=== PATIENT | male | born 1935 | race Two or more races ===

== ENCOUNTER 2017-07-14 19:02 | Inpatient (IN) | payer OTHER ==
[~2017-07-14] VITALS: Ht 167.6 cm; Wt 90.7 kg
[~2017-07-14 19:02] MED LIST: ACETAMINOPHEN650 M2 ORAL; AMBIEN5 MG ORAL; AMLODIPINE BESY10 MG ORAL; ASPIRIN81 MG ORAL; AVODART0.5 MG ORAL; BENADRYL25 MG ORAL; BENAZEPRIL HCL5 MG ORAL; BISACODYL10 M1 RC; CALCIUM 500 MG1 EACH PO; CLONIDINE 0.2M0.2 MG ORAL; CRANBERRY400 MG PO; DOCUSATE SODIU100 MG ORAL; FAMOTIDINE20 MG ORAL; FLONASE ALLERG9.9 ML NS; HYDRALAZINE HCL50 MG ORAL; HYTRIN10 MG PO; LABETALOL HCL200 MG ORAL; LOSARTAN POTAS100 MG ORAL; MAGNESIUM OXID400 M1 ORAL; METFORMIN HCL500 M1 ORAL; METOPROLOL TART50 M1 ORAL; MULTI VITAMIN1 EACH PO; NEXIUM40 MG GT; NITROGLYCERIN0.4 MG SL; NORCO 5-325 TA1 EAC1 ORAL; ONDANSETRON HCL4 M1 GT; PRAVACHOL80 MG PO; PRAVASTATIN SOD80 M1 ORAL; PROMOD946 ML PO; TYLENOL325 MG ORAL; VESICARE10 MG ORAL; VICODIN 5-3001 EACH PO
[2017-07-14] MEDS ORDERED: HYDRALAZINE HCL25 M1 ORAL (19:20)
[2017-07-14] MEDS ORDERED: LOPERAMIDE2 MG PO (19:20)
[2017-07-14] MEDS ORDERED: BISACODYL5 MG ORAL (19:20)
[2017-07-14] MEDS ORDERED: DOCUSATE SODIU100 MG ORAL (19:20)
[2017-07-14] MEDS ORDERED: HUMALOG100 UNIT/4 SUBQ (19:20)
[2017-07-14] MEDS ORDERED: FLEET ENEMA133 ML RECTAL (19:20)
[2017-07-14] MEDS ORDERED: DUONEB 0.5-3(2.53 ML HHN (19:20)
[2017-07-14] MEDS ORDERED: HYDROCHLOROTH12.5 M2 ORAL (19:20)
[2017-07-14] MEDS ORDERED: Oseltamivir 75mg cap ORAL SCH (19:30)
[2017-07-14] MEDS ORDERED: MILK OF MA400 MG/51 ORAL (19:31)
[2017-07-14] MEDS ORDERED: NAMENDA10 MG ORAL (19:31)
[2017-07-14] MEDS ORDERED: ZOFRAN4 M3 ORAL (19:31)
[2017-07-14] MEDS ORDERED: MILK OF MA2400 MG/10 ORAL (19:31)
[2017-07-14] MEDS ORDERED: MINOXIDIL10 MG PO (19:31)
[2017-07-14 19:59] LABS: HEMATOCRIT 40.3 % (42.0-52.0); MEAN CORPUSCULAR VOLUME 99 FL (80-99); PLATELET COUNT 173 K/UL (150-450); RED CELL DISTRIBUTION WIDTH 10.9 % (11.6-14.8); WHITE BLOOD COUNT 11.7 K/UL (4.8-10.8)
[2017-07-14 20:08] VITALS: BP 131/66
[2017-07-14 20:08] LABS: BASOPHILS % (AUTO) 0.4 % (0.0-2.0); EOSINOPHILS % (AUTO) 0.4 % (0.0-3.0); LYMPHOCYTES % (AUTO) 4.9 % (20.0-45.0); MONOCYTES % (AUTO) 7.2 % (1.0-10.0)
[2017-07-14 20:15] LABS: ANION GAP 8 mmol/L (5-15); BLOOD UREA NITROGEN 22 mg/dL (7-18); CALCIUM 7.7 MG/DL (8.5-10.1); CARBON DIOXIDE 29 MMOL/L (21-32); CHLORIDE 101 MMOL/L (98-107); CREATININE 1.2 MG/DL (0.55-1.30); POTASSIUM 3.5 MMOL/L (3.5-5.1); SODIUM 138 MMOL/L (136-145)
[2017-07-14 20:28] LABS: ALANINE AMINOTRANSFERASE 12 U/L (12-78); ALKALINE PHOSPHATASE 89 U/L (46-116); ASPARTATE AMINO TRANSFERASE 16 U/L (15-37); BILIRUBIN,TOTAL 0.6 MG/DL (0.2-1.0); CKMB 1.6 NG/ML (0.0-3.6); CREATINE KINASE 96 U/L (26-308)
[2017-07-14 20:42] LABS: APPEARANCE,URINE CLEAR; BILIRUBIN, URINE NEGATIVE (NEGATIVE); GLUCOSE, URINE (UA) NEGATIVE (NEGATIVE); KETONES,URINE NEGATIVE (NEGATIVE); LEUKOCYTE ESTERASE ,URINE NEGATIVE (NEGATIVE); NITRITE,URINE NEGATIVE (NEGATIVE); PH,URINE 5 (4.5-8.0); PROTEIN,URINE 1+ (NEGATIVE); UROBILINOGEN,URINE NORMAL MG/DL (0.0-1.0)
[2017-07-14 20:47] LABS: COLOR,URINE YELLOW
[2017-07-14] MEDS ORDERED: Albuterol ud Inhalation HHN ONE (21:00)
--- NOTE | 2017-07-14 21:10 | Emergency Room Report ---
History of Present Illness General Chief Complaint: Fever Source: Medical Record Present Illness HPI 82-year-old male brought in from [facility] for fever and "congestion". Patient not providing history of present illness currently, questionable dementia? Review of paperwork shows history of COPD Allergies: Coded Allergies: No Known Allergies (Unverified , 10/28/12) Patient History Past Medical History: HTN, COPD Past Surgical History: unable to obtain Pertinent Family History: unable to obtain Social History: Denies: smoking, alcohol use, drug use Immunizations: UTD Reviewed Nursing Documentation: PMH: Agreed, PSxH: Agreed Nursing Documentation-PMH Past Medical History: No History, Except For Hx Cardiac Problems: Yes - A.Fib, Hx Hypertension: Yes Hx Pacemaker: No - SEPSIS Hx Asthma: Yes Hx COPD: Yes Hx Diabetes: Yes - dm2 Hx Cancer: Yes - BASAL CELL CARCENOMA Hx Gastrointestinal Problems: Yes - GERD, G-TUBE Hx Neurological Problems: Yes - Dementia, anxiety Hx Cerebrovascular Accident: Yes Hx Tremors: Yes Hx Vertigo: Yes Hx Dizziness: Yes Hx Syncope: Yes Hx Headaches: Yes Hx Weakness: Yes Hx Fatigue: Yes Physical Exam Vital Signs Date Time Temp Pulse Resp B/P (MAP) Pulse Ox O2 Delivery O2 Flow Rate FiO2 07/14/17 19:05 100.6 104 22 136/72 92 Nasal Cannula 2.0 Sp02 EP Interpretation: reviewed, normal General Appearance: normal inspection, well appearing, no apparent distress, alert, non-toxic Head: normocephalic, atraumatic Eyes: bilateral eye PERRL, bilateral eye EOMI ENT: normal ENT inspection, hearing grossly normal, normal pharynx, no angioedema, normal voice, TMs + canals normal, uvula midline, moist mucus membranes Neck: normal inspection, full range of motion, supple, thyroid normal, no meningismus, no bony tend Respiratory: normal inspection, lungs clear, normal breath sounds, no rhonchi, no respiratory distress, no retraction, no accessory muscle use, no wheezing, speaking full sentences Cardiovascular #1: regular rate, rhythm, no edema, no JVD, normal capillary refill Gastrointestinal: normal inspection, normal bowel sounds, non tender, soft, no mass, no peritonitis, non-distended, no guarding, no hernia, no pulsatile mass Genitourinary: no CVA tenderness Musculoskeletal: normal inspection, back normal, normal range of motion, no calf tenderness, pelvis stable, Ellie's Sign negative Neurologic: normal inspection, alert, responsive, transfer knitter III-XII nml as tested, motor strength/tone normal, cerebellar normal, normal gait, speech normal Psychiatric: normal inspection, judgement/insight normal, mood/affect normal, no suicidal/homicidal ideation, no delusions Skin: normal inspection, normal color, no rash Lymphatic: normal inspection, no adenopathy Medical Decision Making Diagnostic Impression: Primary Impression: Fever Qualified Codes: R50.9 - Fever, unspecified ER Course Patient brought in with fever Chest x-ray unchanged from previous from 2016: No obvious pneumonia Cultures pending Was given empiric antibiotics and Tamiflu Influenza swab pending vital signs remained stable, patient not septic or ill-appearing Lab significant only for mild leukocytosis Endorsed to Dr Sandra covering for Dr Rehman, patient of Dr Baeza, PMD Tele admission EKG Diagnostic Results Rate: normal Rhythm: NSR ST Segments: no acute changes Other Impression 1st degree AV block Rhythm Strip Diag. Results EP Interpretation: yes Rate: 86 Rhythm: NSR, no PVC's, no ectopy Chest X-Ray Diagnostic Results Chest X-Ray Diagnostic Results : Chest X-Ray Ordered: Yes # of Views/Limited/Complete: 1 View Indication: Other - fever EP Interpretation: Yes Interpretation: no consolidation, no effusion, no pneumothorax, no acute cardiopulmonary disease Impression: No acute disease Electronically Signed by: Dr Virginia Mosqueda MD Last Vital Signs Date Time Temp Pulse Resp B/P (MAP) Pulse Ox O2 Delivery O2 Flow Rate FiO2 07/14/17 20:08 101.5 91 17 131/66 93 Nasal Cannula 2.0 Status: improved Disposition: ADMITTED INPATIENT Condition: Serious Referrals: ASHLEE BAEZA (PCP) VIRGINIA MOSQUEDA M.D. Jul 14, 2017 21:10
[2017-07-14] MEDS ORDERED: Nitroglycerin Subl 0.4mg tab SL SCH (21:45)
[2017-07-14] MEDS ORDERED: Zolpidem 5mg tab ORAL PRN (21:45)
[2017-07-14] MEDS ORDERED: Albuterol/Ipratropium 3ml neb HHN PRN (21:45)
[2017-07-14] MEDS ORDERED: Norco 5mg/325mg tab ORAL PRN (21:45)
[2017-07-14] MEDS ORDERED: Milk of Magnesia 30ml Ud ORAL PRN (21:45)
[2017-07-14 23:29] VITALS: BP 112/46
[2017-07-15] VITALS (11 sets, daily range): BP systolic 101–168; BP diastolic 45–67
[2017-07-15 06:36] LABS: BASOPHILS % (AUTO) 0.7 % (0.0-2.0); EOSINOPHILS % (AUTO) 1.3 % (0.0-3.0); LYMPHOCYTES % (AUTO) 15.2 % (20.0-45.0); MEAN CORPUSCULAR VOLUME 97 FL (80-99); NEUTROPHILS % (AUTO) 69.8 % (45.0-75.0); PLATELET COUNT 164 K/UL (150-450); RED BLOOD COUNT 3.81 M/UL (4.70-6.10); RED CELL DISTRIBUTION WIDTH 10.6 % (11.6-14.8); WHITE BLOOD COUNT 8.2 K/UL (4.8-10.8)
[2017-07-15 06:49] LABS: ANION GAP 7 mmol/L (5-15); BLOOD UREA NITROGEN 16 mg/dL (7-18); CALCIUM 7.3 MG/DL (8.5-10.1); CARBON DIOXIDE 30 MMOL/L (21-32); CHLORIDE 102 MMOL/L (98-107); CREATININE 0.9 MG/DL (0.55-1.30); POTASSIUM 3.4 MMOL/L (3.5-5.1); SODIUM 139 MMOL/L (136-145)
[2017-07-15 06:53] LABS: ALANINE AMINOTRANSFERASE 9 U/L (12-78); ALBUMIN 3.3 G/DL (3.4-5.0); ALBUMIN/GLOBULIN RATIO 0.9 (1.0-2.7); ALKALINE PHOSPHATASE 72 U/L (46-116); ASPARTATE AMINO TRANSFERASE 23 U/L (15-37); BILIRUBIN,TOTAL 0.8 MG/DL (0.2-1.0)
[2017-07-15] MEDS: cefTRIAXone 1 GM in D5W 55 ML IVPB SCH (08:20)
--- NOTE | 2017-07-15 08:26 | History & Physical ---
History and Physical History & Physicial 82 yo male history of cva and copd admitted with fevers and sepsis. unclear source. cxr and urine negative. all cultures pending pt confused and cannot provide any history. no reports or cough or diarrhea. PMH: cva copd PSH: none known All: nkda Fhx: none known Shx: none ROS: +fever no headaches no cough no cp/sob no diarrhea no rash no new weakness PE: 101 110/70 90 20 awake but nonverbal supple [id number] clear ant soft, nt/nd, + bs no c/c/e labs reviewed A/ sepsis ?pna cva copd P/ abx id eval follow up cultures repeat cxr ivf SHANITA FISHMAN Jul 15, 2017 08:26
[2017-07-15] MEDS ORDERED: Fleet's Enema 133ml RECTAL PRN (09:00)
[2017-07-15] MEDS: Heparin 5000 units/ml inj SUBQ SCH ×2 (10:04→21:08)
[2017-07-15] MEDS: Aspirin Baby 81mg ORAL SCH (10:05)
[2017-07-15] MEDS: Magnesium Oxide 400mg tab ORAL SCH ×2 (10:05→18:08)
[2017-07-15] MEDS: Metoprolol 25mg tab ORAL SCH ×2 (10:07→21:08)
[2017-07-15] MEDS: Oseltamivir 75mg cap ORAL SCH ×2 (10:07→18:07)
[2017-07-15] MEDS: Memantine 10mg tab ORAL SCH (10:07)
[2017-07-15] MEDS: metFORMIN 500mg tab ORAL SCH ×2 (10:08→18:07)
[2017-07-15] MEDS: Benazepril 10mg tab ORAL SCH (10:08)
[2017-07-15] MEDS: Docusate 100mg cap ORAL SCH (10:08)
[2017-07-15] MEDS: Minoxidil 10mg tab ORAL SCH ×2 (10:13→18:00)
--- NOTE | 2017-07-15 10:23 | Diagnostic Imaging Report ---
Indication: Shortness of breath Technique: One view of the chest Comparison: 09/05/2015 Findings: There is some atelectasis at both lung bases. The heart is borderline enlarged. The lungs and pleural spaces are otherwise clear. Previously demonstrated left lung volume loss and parenchymal consolidation are no longer evident Impression: Bibasilar atelectasis Borderline cardiomegaly No acute process otherwise
--- NOTE | 2017-07-15 11:15 | Diagnostic Imaging Report ---
Indication: Shortness of breath Technique: One view of the chest Comparison: 07/14/2017 Findings: The heart is enlarged. There may be some retrocardiac consolidation and a small left pleural effusion. The aorta is tortuous and calcified Impression: Cardiomegaly Possible small left pleural effusion and retrocardiac consolidation
[2017-07-15] MEDS: NovoLOG Insulin Flexpen SUBQ SCH ×3 (11:30→21:00)
[2017-07-15] MEDS: cloNIDine 0.2mg Tab ORAL SCH ×2 (15:19→22:10)
[2017-07-16] VITALS (7 sets, daily range): BP systolic 101–147; BP diastolic 47–62
[2017-07-16 06:00] LABS: BASOPHILS % (AUTO) 0.7 % (0.0-2.0); EOSINOPHILS % (AUTO) 6.8 % (0.0-3.0); HEMATOCRIT 34.3 % (42.0-52.0); HEMOGLOBIN 12.2 G/DL (14.2-18.0); LYMPHOCYTES % (AUTO) 27.8 % (20.0-45.0); MEAN CORPUSCULAR VOLUME 98 FL (80-99); MONOCYTES % (AUTO) 17.4 % (1.0-10.0); NEUTROPHILS % (AUTO) 47.4 % (45.0-75.0); PLATELET COUNT 152 K/UL (150-450); RED BLOOD COUNT 3.51 M/UL (4.70-6.10); RED CELL DISTRIBUTION WIDTH 10.6 % (11.6-14.8); WHITE BLOOD COUNT 4.1 K/UL (4.8-10.8)
[2017-07-16] MEDS: cloNIDine 0.2mg Tab ORAL SCH ×2 (06:07→15:14)
[2017-07-16] MEDS: NovoLOG Insulin Flexpen SUBQ SCH ×4 (06:30→21:01)
[2017-07-16] MEDS: cefTRIAXone 1 GM in D5W 55 ML IVPB SCH (07:56)
[2017-07-16] MEDS: Benazepril 10mg tab ORAL SCH (09:20)
[2017-07-16] MEDS: Memantine 10mg tab ORAL SCH (09:21)
[2017-07-16] MEDS: Metoprolol 25mg tab ORAL SCH (09:21)
[2017-07-16] MEDS: Magnesium Oxide 400mg tab ORAL SCH ×2 (09:22→17:47)
[2017-07-16] MEDS: Aspirin Baby 81mg ORAL SCH (09:22)
[2017-07-16] MEDS: Minoxidil 10mg tab ORAL SCH ×2 (09:22→18:18)
[2017-07-16] MEDS: Docusate 100mg cap ORAL SCH (09:23)
[2017-07-16] MEDS: Heparin 5000 units/ml inj SUBQ SCH (09:26)
--- NOTE | 2017-07-16 09:30 | General Progress Note ---
Assessment/Plan Problem List: (1) COPD exacerbation ICD Codes: J44.1 - Chronic obstructive pulmonary disease with (acute) exacerbation SNOMED: 936756985 (2) Respiratory distress ICD Codes: R06.00 - Respiratory distress SNOMED: 937483479 (3) Altered mental status ICD Codes: R41.82 - Altered mental status SNOMED: 200941580 (4) Acute embolic stroke ICD Codes: I63.9 - Acute embolic stroke SNOMED: 128259560 (5) Hx of sepsis ICD Codes: Z86.19 - History of sepsis SNOMED: 420343419436853 (6) Pneumonia ICD Codes: J18.9 - Pneumonia, unspecified organism SNOMED: 894266204 Status: stable, progressing Assessment/Plan iv abx follow up cultures monitor cxr swallow eval Subjective ROS Limited/Unobtainable: No Constitutional: Reports: malaise, weakness HEENT: Reports: no symptoms Cardiovascular: Reports: no symptoms Respiratory: Reports: cough, shortness of breath Gastrointestinal/Abdominal: Reports: no symptoms Genitourinary: Reports: no symptoms Neurologic/Psychiatric: Reports: pre-existing deficit Endocrine: Reports: no symptoms Hematologic/Lymphatic: Reports: anemia Allergies: Coded Allergies: No Known Allergies (Unverified , 10/28/12) All Systems: reviewed and negative except above Subjective same. no complaints. more alert. labs noted. Objective Last 24 Hour Vital Signs Date Time Temp Pulse Resp B/P (MAP) Pulse Ox O2 Delivery O2 Flow Rate FiO2 07/16/17 09:22 144/52 07/16/17 09:21 72 144/52 07/16/17 09:20 144/52 07/16/17 07:45 50 14 147/62 96 Room Air 07/16/17 06:07 137/54 07/16/17 05:38 97.0 48 12 137/54 95 Room Air 07/16/17 03:51 42 17 118/47 94 Room Air 07/16/17 01:51 44 12 101/48 95 Room Air 07/15/17 23:51 44 13 103/52 96 Room Air 07/15/17 22:21 56 16 116/48 95 Room Air 07/15/17 22:10 116/48 07/15/17 21:15 61 13 101/53 95 Room Air 07/15/17 21:08 52 101/53 07/15/17 18:55 98.5 55 14 120/59 100 Nasal Cannula 2.0 28 07/15/17 18:00 99/50 07/15/17 16:41 98.5 47 11 134/56 100 Nasal Cannula 2.0 28 07/15/17 15:19 139/62 07/15/17 15:16 99.6 53 12 139/62 97 Nasal Cannula 2.0 28 07/15/17 13:43 99.6 49 14 136/62 100 Nasal Cannula 2.0 28 07/15/17 12:17 99.6 53 14 116/45 100 Nasal Cannula 2.0 28 07/15/17 10:32 99.6 71 21 168/67 100 Nasal Cannula 2.0 28 07/15/17 10:13 168/67 07/15/17 10:08 168/67 07/15/17 10:07 73 168/67 Intake and Output 07/15/17 07/16/17 19:00 07:00 Output Total 525 ml 1200 ml Balance -525 ml -1200 ml Output Urine Total 525 ml 1200 ml Laboratory Tests 07/16/17 05:30: White Blood Count 4.1L, Red Blood Count 3.51L, Hemoglobin 12.2L, Hematocrit 34.3L, Mean Corpuscular Volume 98, Mean Corpuscular Hemoglobin 34.8H, Mean Corpuscular Hemoglobin Concent 35.6, Red Cell Distribution Width 10.6L, Platelet Count 152, Mean Platelet Volume 6.6, Neutrophils (%) (Auto) 47.4, Lymphocytes (%) (Auto) 27.8, Monocytes (%) (Auto) 17.4H, Eosinophils (%) (Auto) 6.8H, Basophils (%) (Auto) 0.7 Height (Feet): 5 Height (Inches): 6.00 Weight (Pounds): 200 General Appearance: WD/WN, alert, confused Neck: supple Cardiovascular: regular rhythm Respiratory/Chest: chest wall non-tender, lungs clear, normal breath sounds Abdomen: normal bowel sounds, non tender, soft, no organomegaly Edema: no edema noted Arm (L), no edema noted Arm (R), no edema noted Leg (L), no edema noted Leg (R), no edema noted Pedal (L), no edema noted Pedal (R), no edema noted Generalized Neurologic: alert, responsive SHANITA FISHMAN Jul 16, 2017 09:30
[2017-07-16] MEDS: Oseltamivir 75mg cap ORAL SCH ×2 (10:11→18:17)
[2017-07-16] MEDS: metFORMIN 500mg tab ORAL SCH ×2 (10:11→17:47)
[2017-07-16] MEDS ORDERED: Heparin 2000 units/Ns 1000ml IV ONE (12:00)
[2017-07-16 12:59] LABS: INR 1.1 (0.9-1.1)
[2017-07-16] MEDS ORDERED: Heparin 25,000u/D5W 500ml 500 ML IV SCH ×2 (14:15→22:45)
[2017-07-16 14:24] LABS: HEMATOCRIT 32.9 % (42.0-52.0); HEMOGLOBIN 11.4 G/DL (14.2-18.0); MEAN CORPUSCULAR VOLUME 98 FL (80-99); PLATELET COUNT 139 K/UL (150-450); RED BLOOD COUNT 3.34 M/UL (4.70-6.10); RED CELL DISTRIBUTION WIDTH 10.5 % (11.6-14.8); WHITE BLOOD COUNT 3.4 K/UL (4.8-10.8)
[2017-07-16 14:35] LABS: ALANINE AMINOTRANSFERASE 9 U/L (12-78); ALBUMIN 2.7 G/DL (3.4-5.0); ALBUMIN/GLOBULIN RATIO 0.9 (1.0-2.7); ALKALINE PHOSPHATASE 60 U/L (46-116); ANION GAP 6 mmol/L (5-15); ASPARTATE AMINO TRANSFERASE 17 U/L (15-37); BILIRUBIN,TOTAL 0.4 MG/DL (0.2-1.0); BLOOD UREA NITROGEN 14 mg/dL (7-18); CALCIUM 6.6 MG/DL (8.5-10.1); CARBON DIOXIDE 28 MMOL/L (21-32); CHLORIDE 100 MMOL/L (98-107); CREATININE 0.8 MG/DL (0.55-1.30); POTASSIUM 3.2 MMOL/L (3.5-5.1); SODIUM 133 MMOL/L (136-145)
[2017-07-16 21:08] LABS: EOSINOPHILS % (AUTO) 6.4 % (0.0-3.0); HEMATOCRIT 34.1 % (42.0-52.0); HEMOGLOBIN 12.2 G/DL (14.2-18.0); LYMPHOCYTES % (AUTO) 35.3 % (20.0-45.0); MEAN CORPUSCULAR VOLUME 97 FL (80-99); MONOCYTES % (AUTO) 13.4 % (1.0-10.0); NEUTROPHILS % (AUTO) 43.9 % (45.0-75.0); PLATELET COUNT 154 K/UL (150-450); RED CELL DISTRIBUTION WIDTH 10.4 % (11.6-14.8); WHITE BLOOD COUNT 4.4 K/UL (4.8-10.8)
[2017-07-17] VITALS: BP 128/66
[2017-07-17 04:00] VITALS: BP 142/68
[2017-07-17 04:12] LABS: BASOPHILS % (AUTO) 0.7 % (0.0-2.0); EOSINOPHILS % (AUTO) 6.2 % (0.0-3.0); HEMATOCRIT 34.8 % (42.0-52.0); HEMOGLOBIN 12.4 G/DL (14.2-18.0); LYMPHOCYTES % (AUTO) 30.6 % (20.0-45.0); MEAN CORPUSCULAR VOLUME 95 FL (80-99); MONOCYTES % (AUTO) 11.7 % (1.0-10.0); NEUTROPHILS % (AUTO) 50.9 % (45.0-75.0); PLATELET COUNT 160 K/UL (150-450); RED BLOOD COUNT 3.64 M/UL (4.70-6.10); RED CELL DISTRIBUTION WIDTH 10.2 % (11.6-14.8); WHITE BLOOD COUNT 5.4 K/UL (4.8-10.8)
[2017-07-17 04:22] LABS: ALANINE AMINOTRANSFERASE 10 U/L (12-78); ALBUMIN 2.9 G/DL (3.4-5.0); ALBUMIN/GLOBULIN RATIO 0.9 (1.0-2.7); ALKALINE PHOSPHATASE 66 U/L (46-116); ANION GAP 6 mmol/L (5-15); ASPARTATE AMINO TRANSFERASE 16 U/L (15-37); BILIRUBIN,TOTAL 0.5 MG/DL (0.2-1.0); BLOOD UREA NITROGEN 16 mg/dL (7-18); CALCIUM 6.9 MG/DL (8.5-10.1); CARBON DIOXIDE 29 MMOL/L (21-32); CHLORIDE 102 MMOL/L (98-107); CREATININE 0.8 MG/DL (0.55-1.30); POTASSIUM 3.4 MMOL/L (3.5-5.1); SODIUM 137 MMOL/L (136-145)
[2017-07-17] MEDS: NovoLOG Insulin Flexpen SUBQ SCH ×4 (06:30→21:00)
--- NOTE | 2017-07-17 07:40 | General Progress Note ---
Assessment/Plan Problem List: (1) COPD exacerbation ICD Codes: J44.1 - Chronic obstructive pulmonary disease with (acute) exacerbation SNOMED: 072020151 (2) Respiratory distress ICD Codes: R06.00 - Respiratory distress SNOMED: 489324366 (3) Altered mental status ICD Codes: R41.82 - Altered mental status SNOMED: 877591188 (4) Acute embolic stroke ICD Codes: I63.9 - Acute embolic stroke SNOMED: 036625124 (5) Hx of sepsis ICD Codes: Z86.19 - History of sepsis SNOMED: 628799473838855 (6) Pneumonia ICD Codes: J18.9 - Pneumonia, unspecified organism SNOMED: 071414085 Status: stable, progressing Assessment/Plan iv abx follow up cultures monitor cxr swallow eval b-deepthi and clonidine dcd. replace k Subjective ROS Limited/Unobtainable: No Constitutional: Reports: malaise, weakness HEENT: Reports: no symptoms Cardiovascular: Reports: no symptoms Respiratory: Reports: cough Gastrointestinal/Abdominal: Reports: no symptoms Genitourinary: Reports: no symptoms Neurologic/Psychiatric: Reports: pre-existing deficit Endocrine: Reports: no symptoms Hematologic/Lymphatic: Reports: no symptoms Allergies: Coded Allergies: No Known Allergies (Unverified , 10/28/12) All Systems: reviewed and negative except above Subjective same. no complaints. more alert. labs noted. bradycardic last night. b-deepthi dcd Objective Last 24 Hour Vital Signs Date Time Temp Pulse Resp B/P (MAP) Pulse Ox O2 Delivery O2 Flow Rate FiO2 07/17/17 04:00 42 07/17/17 04:00 97.3 49 20 142/68 96 Room Air 07/17/17 04:00 Room Air 07/17/17 00:00 97.2 71 18 128/66 96 Room Air 07/17/17 00:00 Room Air 07/17/17 00:00 43 07/16/17 20:00 45 07/16/17 20:00 Room Air 07/16/17 20:00 97.2 44 18 120/51 93 Room Air 07/16/17 18:18 136/70 07/16/17 16:35 97.0 65 18 103/53 95 Room Air 2.0 28 07/16/17 16:00 44 07/16/17 15:16 65 18 103/53 95 Room Air 07/16/17 15:14 132/53 07/16/17 12:06 49 12 103/54 95 Room Air 07/16/17 09:22 144/52 07/16/17 09:21 72 144/52 07/16/17 09:20 144/52 07/16/17 07:45 50 14 147/62 96 Room Air Intake and Output 07/16/17 07/17/17 19:00 07:00 Intake Total 283.670 ml 773.995 ml Output Total 1000 ml 1500 ml Balance -716.330 ml -726.005 ml Intake IV Total 283.670 ml 773.995 ml Output Urine Total 1000 ml 1500 ml Laboratory Tests 07/16/17 11:45: White Blood Count 3.4L, Red Blood Count 3.34L, Hemoglobin 11.4L, Hematocrit 32.9L, Mean Corpuscular Volume 98, Mean Corpuscular Hemoglobin 34.2H, Mean Corpuscular Hemoglobin Concent 34.8, Red Cell Distribution Width 10.5L, Platelet Count 139L, Mean Platelet Volume 5.7L, Neutrophils (%) (Auto) , Lymphocytes (%) (Auto) , Monocytes (%) (Auto) , Eosinophils (%) (Auto) , Basophils (%) (Auto) , Differential Total Cells Counted 100, Neutrophils % ( Manual) 61, Lymphocytes % (Manual) 24, Monocytes % (Manual) 9, Eosinophils % ( Manual) 6H, Basophils % (Manual) 0, Band Neutrophils 0, Platelet Estimate DecreasedL, Platelet Morphology Normal, Sodium Level 133L, Potassium Level 3.2L , Chloride Level 100, Carbon Dioxide Level 28, Anion Gap 6, Blood Urea Nitrogen 14, Creatinine 0.8, Estimat Glomerular Filtration Rate , Glucose Level 115H, Calcium Level 6.6L, Total Bilirubin 0.4, Aspartate Amino Transf (AST/SGOT) 17, Alanine Aminotransferase (ALT/SGPT) 9L, Alkaline Phosphatase 60, Total Protein 5.8L, Albumin 2.7L, Globulin 3.1, Albumin/Globulin Ratio 0.9L 07/16/17 12:35: Prothrombin Time 11.4, Prothromb Time International Ratio 1.1, Activated Partial Thromboplast Time 38H 07/16/17 20:45: White Blood Count 4.4L, Red Blood Count 3.50L, Hemoglobin 12.2L, Hematocrit 34.1L, Mean Corpuscular Volume 97, Mean Corpuscular Hemoglobin 34.8H, Mean Corpuscular Hemoglobin Concent 35.7, Red Cell Distribution Width 10.4L, Platelet Count 154, Mean Platelet Volume 5.6L, Neutrophils (%) (Auto) 43.9L, Lymphocytes (%) (Auto) 35.3, Monocytes (%) (Auto) 13.4H, Eosinophils (%) (Auto) 6.4H, Basophils (%) (Auto) 1.0, Activated Partial Thromboplast Time > 150*H 07/17/17 03:50: White Blood Count 5.4, Red Blood Count 3.64L, Hemoglobin 12.4L, Hematocrit 34.8L , Mean Corpuscular Volume 95, Mean Corpuscular Hemoglobin 34.0H, Mean Corpuscular Hemoglobin Concent 35.6, Red Cell Distribution Width 10.2L, Platelet Count 160, Mean Platelet Volume 5.7L, Neutrophils (%) (Auto) 50.9, Lymphocytes (%) (Auto) 30.6, Monocytes (%) (Auto) 11.7H, Eosinophils (%) (Auto) 6.2H, Basophils (%) (Auto) 0.7, Sodium Level 137, Potassium Level 3.4L, Chloride Level 102, Carbon Dioxide Level 29, Anion Gap 6, Blood Urea Nitrogen 16 , Creatinine 0.8, Estimat Glomerular Filtration Rate , Glucose Level 95, Calcium Level 6.9L, Total Bilirubin 0.5, Aspartate Amino Transf (AST/SGOT) 16, Alanine Aminotransferase (ALT/SGPT) 10L, Alkaline Phosphatase 66, Total Protein 6.2L, Albumin 2.9L, Globulin 3.3, Albumin/Globulin Ratio 0.9L, Activated Partial Thromboplast Time 83H Height (Feet): 5 Height (Inches): 6.00 Weight (Pounds): 200 General Appearance: WD/WN, alert Neck: supple Cardiovascular: regular rhythm Respiratory/Chest: lungs clear, normal breath sounds, no respiratory distress Abdomen: normal bowel sounds, non tender, soft, no organomegaly Edema: no edema noted Arm (L), no edema noted Arm (R), no edema noted Leg (L), no edema noted Leg (R), no edema noted Pedal (L), no edema noted Pedal (R), no edema noted Generalized SHANITA FISHMAN Jul 17, 2017 07:40
[2017-07-17 08:00] VITALS: BP 147/72
[2017-07-17] MEDS: Docusate 100mg cap ORAL SCH (10:49)
[2017-07-17] MEDS: Benazepril 10mg tab ORAL SCH (10:50)
[2017-07-17] MEDS: Magnesium Oxide 400mg tab ORAL SCH ×2 (10:51→17:40)
[2017-07-17] MEDS: Memantine 10mg tab ORAL SCH (10:51)
[2017-07-17] MEDS: metFORMIN 500mg tab ORAL SCH ×2 (10:51→17:38)
[2017-07-17] MEDS: Minoxidil 10mg tab ORAL SCH ×2 (10:51→17:39)
[2017-07-17] MEDS: Aspirin Baby 81mg ORAL SCH (10:51)
[2017-07-17] MEDS: Oseltamivir 75mg cap ORAL SCH (10:51)
[2017-07-17] MEDS: cefTRIAXone 1 GM in D5W 55 ML IVPB SCH (11:52)
[2017-07-17 12:00] VITALS: BP 143/68
[2017-07-17 12:43] LABS: BASOPHILS % (AUTO) 0.8 % (0.0-2.0); EOSINOPHILS % (AUTO) 5.5 % (0.0-3.0); HEMATOCRIT 36.2 % (42.0-52.0); HEMOGLOBIN 12.9 G/DL (14.2-18.0); LYMPHOCYTES % (AUTO) 42.9 % (20.0-45.0); MEAN CORPUSCULAR VOLUME 97 FL (80-99); NEUTROPHILS % (AUTO) 37.9 % (45.0-75.0); PLATELET COUNT 155 K/UL (150-450); RED BLOOD COUNT 3.72 M/UL (4.70-6.10); RED CELL DISTRIBUTION WIDTH 10.2 % (11.6-14.8)
[2017-07-17 19:21] LABS: HEMATOCRIT 37.1 % (42.0-52.0); HEMOGLOBIN 12.6 G/DL (14.2-18.0); LYMPHOCYTES % (AUTO) 42.3 % (20.0-45.0); MEAN CORPUSCULAR VOLUME 97 FL (80-99); MONOCYTES % (AUTO) 10.9 % (1.0-10.0); NEUTROPHILS % (AUTO) 40.8 % (45.0-75.0); PLATELET COUNT 157 K/UL (150-450); RED BLOOD COUNT 3.84 M/UL (4.70-6.10); RED CELL DISTRIBUTION WIDTH 10.5 % (11.6-14.8); WHITE BLOOD COUNT 3.6 K/UL (4.8-10.8)
--- NOTE | 2017-07-17 19:22 | Cardiology Report ---
APPROVED REPORT EKG Measurement Heart [id number] MD [id number] [id number] Sinus rhythm with 1st degree AV block and APC's. Otherwise normal ECG
[2017-07-17 20:05] VITALS: BP 143/70
[2017-07-18] VITALS: BP 146/74
[2017-07-18 04:28] VITALS: BP 164/84
[2017-07-18] MEDS: NovoLOG Insulin Flexpen SUBQ SCH ×4 (06:30→21:00)
--- NOTE | 2017-07-18 07:45 | General Progress Note ---
Assessment/Plan Problem List: (1) COPD exacerbation ICD Codes: J44.1 - Chronic obstructive pulmonary disease with (acute) exacerbation SNOMED: 576745315 (2) Respiratory distress ICD Codes: R06.00 - Respiratory distress SNOMED: 003075842 (3) Altered mental status ICD Codes: R41.82 - Altered mental status SNOMED: 568616555 (4) Acute embolic stroke ICD Codes: I63.9 - Acute embolic stroke SNOMED: 801678367 (5) Hx of sepsis ICD Codes: Z86.19 - History of sepsis SNOMED: 339682715405832 (6) Pneumonia ICD Codes: J18.9 - Pneumonia, unspecified organism SNOMED: 606510286 (7) DVT (deep venous thrombosis) ICD Codes: I82.409 - Acute embolism and thrombosis of unspecified deep veins of unspecified lower extremity SNOMED: 673842121 Status: stable, progressing Assessment/Plan iv abx follow up cultures monitor cxr asp precautions b-deepthi and clonidine dcd. monitor hr dc ivf retry oral anticoag. Subjective ROS Limited/Unobtainable: No Constitutional: Reports: malaise, weakness HEENT: Reports: no symptoms Cardiovascular: Reports: no symptoms Respiratory: Reports: cough Gastrointestinal/Abdominal: Reports: no symptoms Genitourinary: Reports: no symptoms Neurologic/Psychiatric: Reports: pre-existing deficit Endocrine: Reports: no symptoms Hematologic/Lymphatic: Reports: no symptoms Allergies: Coded Allergies: No Known Allergies (Unverified , 10/28/12) All Systems: reviewed and negative except above Subjective same. no complaints. more alert. bradycardia better. cxr noted. Objective Last 24 Hour Vital Signs Date Time Temp Pulse Resp B/P (MAP) Pulse Ox O2 Delivery O2 Flow Rate FiO2 07/18/17 04:28 97.2 59 20 164/84 95 Room Air 07/18/17 04:00 50 07/18/17 00:00 Room Air 07/18/17 00:00 98.0 55 20 146/74 94 07/18/17 00:00 53 07/17/17 20:05 98.0 55 20 143/70 94 07/17/17 20:00 51 07/17/17 20:00 Room Air 07/17/17 17:39 143/68 07/17/17 16:00 46 07/17/17 12:00 97.2 44 20 143/68 95 Nasal Cannula 2.0 07/17/17 12:00 44 07/17/17 10:51 147/72 07/17/17 10:50 147/72 07/17/17 08:00 97.0 57 20 147/72 95 Nasal Cannula 2.0 07/17/17 08:00 41 Intake and Output 07/17/17 07/18/17 19:00 07:00 Intake Total 315 ml 695 ml Output Total 1500 ml 2000 ml Balance -1185 ml -1305 ml Intake Oral 240 ml IV Total 75 ml 695 ml Output Urine Total 1500 ml 2000 ml Laboratory Tests 07/17/17 12:45: White Blood Count 4.0L, Red Blood Count 3.72L, Hemoglobin 12.9L, Hematocrit 36.2L, Mean Corpuscular Volume 97, Mean Corpuscular Hemoglobin 34.7H, Mean Corpuscular Hemoglobin Concent 35.6, Red Cell Distribution Width 10.2L, Platelet Count 155, Mean Platelet Volume 6.2L, Neutrophils (%) (Auto) 37.9L, Lymphocytes (%) (Auto) 42.9, Monocytes (%) (Auto) 13.0H, Eosinophils (%) (Auto) 5.5H, Basophils (%) (Auto) 0.8 07/17/17 18:55: White Blood Count 3.6L, Red Blood Count 3.84L, Hemoglobin 12.6L, Hematocrit 37.1L, Mean Corpuscular Volume 97, Mean Corpuscular Hemoglobin 32.7H, Mean Corpuscular Hemoglobin Concent 33.8, Red Cell Distribution Width 10.5L, Platelet Count 157, Mean Platelet Volume 5.2L, Neutrophils (%) (Auto) 40.8L, Lymphocytes (%) (Auto) 42.3, Monocytes (%) (Auto) 10.9H, Eosinophils (%) (Auto) 5.0H, Basophils (%) (Auto) 1.0 07/18/17 05:55: Sodium Level [Pending], Potassium Level [Pending], Chloride Level [Pending], Carbon Dioxide Level [Pending], Blood Urea Nitrogen [Pending], Creatinine [ Pending], Estimat Glomerular Filtration Rate [Pending], Glucose Level [Pending] , Calcium Level [Pending], Total Bilirubin [Pending], Aspartate Amino Transf ( AST/SGOT) [Pending], Alanine Aminotransferase (ALT/SGPT) [Pending], Alkaline Phosphatase [Pending], Total Protein [Pending], Albumin [Pending], Globulin [ Pending] Height (Feet): 5 Height (Inches): 6.00 Weight (Pounds): 200 Objective General Appearance: WD/WN, alert Neck: supple Cardiovascular: regular rhythm Respiratory/Chest: lungs clear, normal breath sounds, no respiratory distress Abdomen: normal bowel sounds, non tender, soft, no organomegaly Edema: no edema noted Arm (L), no edema noted Arm (R), no edema noted Leg (L), no edema noted Leg (R), no edema noted Pedal (L), no edema noted Pedal (R), no edema noted Generalized SHANITA FISHMAN Jul 18, 2017 07:45
[2017-07-18 08:00] VITALS: BP 174/83
[2017-07-18 08:21] LABS: ALANINE AMINOTRANSFERASE 13 U/L (12-78); ALBUMIN 3.2 G/DL (3.4-5.0); ALBUMIN/GLOBULIN RATIO 0.9 (1.0-2.7); ALKALINE PHOSPHATASE 68 U/L (46-116); ANION GAP 9 mmol/L (5-15); ASPARTATE AMINO TRANSFERASE 29 U/L (15-37); BILIRUBIN,TOTAL 0.6 MG/DL (0.2-1.0); BLOOD UREA NITROGEN 10 mg/dL (7-18); CALCIUM 7.3 MG/DL (8.5-10.1); CARBON DIOXIDE 25 MMOL/L (21-32); CHLORIDE 103 MMOL/L (98-107); CREATININE 0.8 MG/DL (0.55-1.30); POTASSIUM 3.5 MMOL/L (3.5-5.1); SODIUM 137 MMOL/L (136-145)
[2017-07-18] MEDS: cefTRIAXone 1 GM in D5W 55 ML IVPB SCH (08:40)
[2017-07-18] MEDS: Aspirin Baby 81mg ORAL SCH (08:41)
[2017-07-18] MEDS: Magnesium Oxide 400mg tab ORAL SCH ×2 (08:41→17:24)
[2017-07-18] MEDS: Benazepril 10mg tab ORAL SCH (08:41)
[2017-07-18] MEDS: Xarelto 15mg tab ORAL SCH ×2 (08:41→17:24)
[2017-07-18] MEDS: Minoxidil 10mg tab ORAL SCH ×2 (08:41→17:24)
[2017-07-18] MEDS: metFORMIN 500mg tab ORAL SCH ×2 (08:41→17:24)
[2017-07-18] MEDS: Memantine 10mg tab ORAL SCH (08:41)
[2017-07-18] MEDS: Docusate 100mg cap ORAL SCH (08:43)
--- NOTE | 2017-07-18 10:22 | Diagnostic Imaging Report ---
Indication: Cough Technique: One view of the chest Comparison: 07/15/2017 Findings: There is increasing pleural fluid on the left. There is minimal atelectasis at the right lung base. There appears to be increasing volume loss on the left, as well. Retrocardiac opacity likely reflects atelectatic lung. Impression: Increasing left basilar atelectasis and pleural fluid, over 3 days Minimal right basilar atelectasis
--- NOTE | 2017-07-18 13:10 | Diagnostic Imaging Report ---
APPROVED REPORT CPT Code: 41180 Present Symptoms Shortness of breath Comments: Hx CHF, A-fib, HTN. RIGHT LEG: Venous imaging reveals a patent deep venous system. There is no evidence of thrombus within the femoral, popliteal or tibial segments. The greater saphenous vein is also within normal limits. Doppler indicates normal spontaneous flow within these segments. LEFT LEG: Venous imaging reveals acute, non-occlusive thrombus in the distal common femoral vein. Imaging reveals patency of the proximal to mid common femoral, superficial femoral, popliteal and calf veins. The greater saphenous vein is also within normal limits. Dr. Rehman was informed of abnormal results at 11:30 hrs.
[2017-07-18 14:00] VITALS: BP 132/80
[2017-07-18 16:00] VITALS: BP 137/83
[2017-07-18] MEDS: Metoprolol 25mg tab ORAL SCH (17:24)
[2017-07-18 20:00] VITALS: BP 152/75
[2017-07-19] VITALS: BP 137/63
[2017-07-19 04:00] VITALS: BP 146/70
[2017-07-19] MEDS: NovoLOG Insulin Flexpen SUBQ SCH ×2 (06:30→11:04)
[2017-07-19 07:37] LABS: BASOPHILS % (AUTO) 0.6 % (0.0-2.0); EOSINOPHILS % (AUTO) 4.7 % (0.0-3.0); HEMATOCRIT 36.6 % (42.0-52.0); HEMOGLOBIN 13.2 G/DL (14.2-18.0); LYMPHOCYTES % (AUTO) 31.5 % (20.0-45.0); MEAN CORPUSCULAR VOLUME 97 FL (80-99); MONOCYTES % (AUTO) 10.2 % (1.0-10.0); NEUTROPHILS % (AUTO) 53.1 % (45.0-75.0); PLATELET COUNT 172 K/UL (150-450); RED BLOOD COUNT 3.79 M/UL (4.70-6.10); RED CELL DISTRIBUTION WIDTH 10.5 % (11.6-14.8); WHITE BLOOD COUNT 5.9 K/UL (4.8-10.8)
[2017-07-19 07:51] VITALS: BP 165/83
[2017-07-19] MEDS: Docusate 100mg cap ORAL SCH (08:26)
[2017-07-19] MEDS: Benazepril 10mg tab ORAL SCH (08:27)
[2017-07-19] MEDS: Magnesium Oxide 400mg tab ORAL SCH (08:27)
[2017-07-19] MEDS: cefTRIAXone 1 GM in D5W 55 ML IVPB SCH (08:27)
[2017-07-19] MEDS: Aspirin Baby 81mg ORAL SCH (08:27)
[2017-07-19] MEDS: metFORMIN 500mg tab ORAL SCH (08:27)
[2017-07-19] MEDS: Xarelto 15mg tab ORAL SCH (08:27)
[2017-07-19] MEDS: Memantine 10mg tab ORAL SCH (08:27)
[2017-07-19] MEDS: Minoxidil 10mg tab ORAL SCH (08:28)
[2017-07-19] MEDS: Metoprolol 25mg tab ORAL SCH (08:29)
[2017-07-19] MEDS ORDERED: XARELTO15 MG ORAL (09:50)
[2017-07-19] MEDS ORDERED: INVANZ1 GM IVPB (09:50)
[2017-07-19 09:57] LABS: ALANINE AMINOTRANSFERASE 17 U/L (12-78); ALBUMIN 3.3 G/DL (3.4-5.0); ALKALINE PHOSPHATASE 71 U/L (46-116); ANION GAP 7 mmol/L (5-15); ASPARTATE AMINO TRANSFERASE 27 U/L (15-37); BILIRUBIN,TOTAL 0.6 MG/DL (0.2-1.0); BLOOD UREA NITROGEN 10 mg/dL (7-18); CALCIUM 7.6 MG/DL (8.5-10.1); CARBON DIOXIDE 30 MMOL/L (21-32); CHLORIDE 103 MMOL/L (98-107); CREATININE 0.9 MG/DL (0.55-1.30); POTASSIUM 3.5 MMOL/L (3.5-5.1); SODIUM 139 MMOL/L (136-145)
[2017-07-19] MEDS ORDERED: Pneumococcal Vaccine 25mcg/0.5ml IM ONE (11:30)
[2017-07-19] MEDS ORDERED: Flu Vaccine Quadrivalent 0.5ml IM ONE (11:30)
[2017-07-19] MEDS ORDERED: XARELTO10 MG ORAL (11:34)
[2017-07-19] MEDS ORDERED: HydrALAZINE 25mg tab GT PRN (12:45)
[2017-07-19 12:59] VITALS: BP 169/77
[2017-07-19] MEDS ORDERED: NS 500ML ONE (14:29)
[2017-07-19] MEDS ORDERED: Sterile Water Irrig 1000ml IRRIG ONE (14:29)
[2017-07-19] MEDS ORDERED: Tubing IV Secondary IV ONE (14:29)
[2017-07-19] MEDS ORDERED: 1/2 NS 1000ml IV ONE (14:29)
--- NOTE | 2017-07-19 22:01 | Discharge Summary ---
DATE OF ADMISSION: 07/14/2017 DATE OF DISCHARGE: 07/19/2017 ADMISSION DIAGNOSES: 1. Pneumonia. 2. History of stroke. 3. Hypertension. 4. Diabetes. DISCHARGE DIAGNOSES: 1. Pneumonia. 2. History of stroke. 3. Hypertension. 4. Diabetes. 5. Deep vein thrombosis. HOSPITAL COURSE: The patient is a pleasant male, who presented with complaints of shortness of breath, cough, fevers, or chills. He was diagnosed with healthcare-associated pneumonia. He received intravenous antibiotics. Fever and congestion improved dramatically. On discharge, his x-ray still did have a small retrocardiac infiltrate and a small pleural effusion. The patient's hospital course was complicated by acute DVT. He was started on heparin, but had some hematuria. This was discontinued. The patient will be started on Xarelto with no bleeding. The patient will be discharged to complete 7 days of IV antibiotic therapy for pneumonia. He will be continued on Xarelto. He will be followed by his PMD. DISCHARGE MEDICATIONS: Please see discharge medication list for discharge medications. DIET: G-tube feedings. ACTIVITY: Ad-asehr. FOLLOWUP: The patient will be followed by his PMD in one to two days. Reji Rehman M.D. DR: NICOLE JOB#: [id number] CC:
--- NOTE | 2017-07-27 16:08 | Cardiology Report ---
APPROVED REPORT EKG Measurement Heart [id number] [place] 208P0 [id number] Normal sinus rhythm Nonspecific ST and T wave abnormality Abnormal ECG
== END 2017-07-19 14:30 | DRG 139 ==
LOC: EDBD 19:02 → EMR 19:27 → EDBEDREQ 19:39 → UNDOADMIN 20:20 → 4E 20:20 → 2E 20:20 → EDBEDREQTM 07-15 21:00 → EDBEDREQSVC 07-15 21:00 → EDBEDREQDT 07-15 21:00 → EDBEDREQ 07-15 21:00 → 2E 07-16 15:24
DX: J18.9 Pneumonia, unspecified organism (principal); I82.412 Acute embolism and thrombosis of left femoral vein; J44.0 Chronic obstructive pulmonary disease with (acute) lower respiratory infection; Z93.1 Gastrostomy status; E11.9 Type 2 diabetes mellitus without complications; I10 Essential (primary) hypertension; D64.9 Anemia, unspecified; R00.1 Bradycardia, unspecified; J44.1 Chronic obstructive pulmonary disease with (acute) exacerbation; Z23 Encounter for immunization; Z79.84 Long term (current) use of oral hypoglycemic drugs; Z86.73 Personal history of transient ischemic attack (TIA), and cerebral infarction without residual deficits
CPT/HCPCS: 36415; 71010; 71045; 80053; 81003; 82550; 82553; 82962; 83605; 84443; 84484; 85007; 85025; 85610; 85730; 86710; 87040; 87081; 90630; 90732; 93005; 93970; 94640; 94664; 99285; J1815; J7620; J8499